=== PATIENT | male | born 1995 | race Caucasian/White ===

== ENCOUNTER 2016-12-12 09:57 | Inpatient (IN) | payer SELFPAY ==
[2016-12-12] VITALS (8 sets, daily range): BP systolic 106–134; BP diastolic 52–73; PULSE 63–75; RESP 15–21; TEMP 97.8–98.7; O2SAT 98–100
[~2016-12-12] VITALS: Ht 185.4 cm; Wt 75.0 kg
[2016-12-12] MEDS ORDERED: POTA10CA PO (11:25)
[2016-12-12] MEDS ORDERED: MAGN250T11 PO (11:25)
--- NOTE | 2016-12-12 11:27 | PD ---
HPI Chief Complaint: General Weakness Time Seen by Provider: 10:59 Travel History International Travel<30 days: No Contact w/Intl Traveler<30days: No Traveled to known affect area: No History of Present Illness HPI This is a 21-year-old male who has a history of hypokalemia who presents to the emergency Department with onset at 3 AM of weakness in his arms and legs. His symptoms are severe, constant, making it difficult for him to move and impossible for him to walk. He says this has happened to him before. He takes potassium 20 mEq daily. He says this runs in his family. PFSH Past Medical History Medical other: Yes (LOW POTASSIUM WITH PARALYSIS) Tetanus Vaccination: Unknown Past Surgical History Surgical History: No Previous Surgery Social History Alcohol Use: No Tobacco Use: No Substance Use: No Allergies-Medications (Allergen,Severity, Reaction): Coded Allergies: No Known Allergies (Unverified , 12/12/16) Reported Meds & Prescriptions Reported Meds & Active Scripts Active Reported Magnesium Oxide 250 Mg Tab 250 Mg PO HS Review of Systems Except as stated in HPI: all other systems reviewed are Neg Physical Exam Narrative GENERAL:Well appearing, no acute distress SKIN: Focused skin assessment warm and dry. HEAD: Atraumatic. Normocephalic. EYES: Pupils equal and round. No injection or drainage. ENT: Moist mucous membranes NECK: Trachea midline. CARDIOVASCULAR: Regular rate and rhythm. No murmur appreciated. RESPIRATORY: Clear to auscultation. Breath sounds equal bilaterally. GASTROINTESTINAL: Abdomen soft, non-tender, nondistended. MUSCULOSKELETAL: No obvious deformities. NEUROLOGICAL: Awake and alert. No obvious cranial nerve deficits. Able to twitch his upper and lower extremities but unable to lift his arms or legs off of the bed. PSYCHIATRIC: Appropriate mood and affect; insight and judgment normal. Data Data Last Documented VS Vital Signs Date Time Temp Pulse Resp B/P (MAP) Pulse Ox O2 Delivery O2 Flow Rate FiO2 12/12/16 11:19 97.8 63 15 127/73 (91) 100 Room Air Orders Orders Complete Blood Count With Diff (12/12/16 11:00) Comprehensive Metabolic Panel (12/12/16 11:00) Magnesium (Mg) (12/12/16 11:00) ^ Insert Iv (12/12/16 11:00) ^ Insert Iv (12/12/16 11:09) Electrocardiogram (12/12/16 ) Potassium Chloride Powder (Kcl Powder) (12/12/16 13:00) Potassium Chlor 20 Meq Premix (Kcl 20 Me (12/12/16 13:00) Admit Order (Ed Use Only) (12/12/16 12:57) Labs Laboratory Tests Test 12/12/16 11:30 White Blood Count 10.9 TH/MM3 Red Blood Count 5.07 MIL/MM3 Hemoglobin 14.4 GM/DL Hematocrit 43.6 % Mean Corpuscular Volume 85.9 FL Mean Corpuscular Hemoglobin 28.3 PG Mean Corpuscular Hemoglobin Concent 32.9 % Red Cell Distribution Width 12.7 % Platelet Count 245 TH/MM3 Mean Platelet Volume 9.2 FL Neutrophils (%) (Auto) 75.5 % Lymphocytes (%) (Auto) 16.2 % Monocytes (%) (Auto) 7.5 % Eosinophils (%) (Auto) 0.6 % Basophils (%) (Auto) 0.2 % Neutrophils # (Auto) 8.2 TH/MM3 Lymphocytes # (Auto) 1.8 TH/MM3 Monocytes # (Auto) 0.8 TH/MM3 Eosinophils # (Auto) 0.1 TH/MM3 Basophils # (Auto) 0.0 TH/MM3 CBC Comment DIFF FINAL Differential Comment Blood Urea Nitrogen 9 MG/DL Creatinine 0.58 MG/DL Random Glucose 107 MG/DL Total Protein 7.9 GM/DL Albumin 4.2 GM/DL Calcium Level 8.9 MG/DL Magnesium Level 2.0 MG/DL Alkaline Phosphatase 69 U/L Aspartate Amino Transf (AST/SGOT) 28 U/L Alanine Aminotransferase (ALT/SGPT) 33 U/L Total Bilirubin 0.3 MG/DL Sodium Level 139 MEQ/L Potassium Level 1.7 MEQ/L Chloride Level 105 MEQ/L Carbon Dioxide Level 26.8 MEQ/L Anion Gap 7 MEQ/L Estimat Glomerular Filtration Rate 177 ML/MIN MDM Medical Decision Making Medical Screen Exam Complete: Yes Emergency Medical Condition: Yes Interpretation(s) Hypokalemia Differential Diagnosis Hypokalemia, hypomagnesemia, rhabdomyolysis, stroke, multiple sclerosis Narrative Course This is a 21-year-old male who presents to the emergency department with a history of hypokalemic familial periodic paralysis unable to move his arms and legs. He was placed on a monitor and an IV was established. His potassium is 1.7. On EKG he had U waves. Patient was admitted to the intensive care unit for close monitoring and potassium repletion was initiated in the emergency department via IV and oral routes. Critical Care Narrative Aggregate critical care time was 35 minutes. Time to perform other separately billable procedures was not included in the critical care time. My time did not include minutes spent treating any other patients simultaneously or on activities that did not directly contribute to the patient's treatment. The services I provided to this patient were to treat and/or prevent clinically significant deterioration that could result in: Disability, I provided critical care services requiring my management, as noted below: Chart data review, documentation time, medication orders and management, vital sign assessments/reviewing monitor data, ordering and reviewing lab tests, ordering and interpreting/reviewing x-rays and diagnostic studies, care of the patient and discussion of the patient with the admitting physicians. Diagnosis Primary Impression: Hypokalemic familial periodic paralysis Admitting Information Admitting Physician Requests: Admit Scripts Potassium Chloride ER (Potassium Chloride ER) 10 Meq Cap 10 MEQ PO BID for Electrolyte Replacement, #60 CAP 0 Refills Prov: Sd Pineda MD 12/13/16 Emily Bunch MD Dec 12, 2016 11:27
[2016-12-12 12:00] LABS: AUTOMATED NEUTROPHIL # 8.2 TH/MM3 (1.8-7.7); BASOPHIL % 0.2 % (0.0-2.0); EOSINOPHIL # 0.1 TH/MM3 (0-0.4); EOSINOPHIL % 0.6 % (0.0-4.0); HEMATOCRIT 43.6 % (39.0-51.0); HEMOGLOBIN 14.4 GM/DL (13.0-17.0); LYMPH % 16.2 % (9.0-44.0); LYMPHOCYTE # 1.8 TH/MM3 (1.0-4.8); MEAN CELL VOLUME 85.9 FL (80.0-100.0); MEAN CORPUSCULAR HEMOGLOBIN 28.3 PG (27.0-34.0); MEAN CORPUSCULAR HGB CONC 32.9 % (32.0-36.0); MEAN PLATELET VOLUME 9.2 FL (7.0-11.0); MONO % 7.5 % (0.0-8.0); MONOCYTE # 0.8 TH/MM3 (0-0.9); NEUT % 75.5 % (16.0-70.0); PLATELET COUNT 245 TH/MM3 (150-450); RED BLOOD COUNT 5.07 MIL/MM3 (4.50-5.90); RED CELL DISTRIBUTION WIDTH 12.7 % (11.6-17.2); WHITE BLOOD COUNT 10.9 TH/MM3 (4.0-11.0)
[2016-12-12 12:30] LABS: ALBUMIN 4.2 GM/DL (3.4-5.0); ALKALINE PHOSPHATASE 69 U/L (45-117); ALT (GPT) 33 U/L (12-78); AST (GOT) 28 U/L (15-37); BICARBONATE 26.8 MEQ/L (21.0-32.0); BLOOD UREA NITROGEN 9 MG/DL (7-18); CALCIUM 8.9 MG/DL (8.5-10.1); CHLORIDE 105 MEQ/L (98-107); CREATININE 0.58 MG/DL (0.60-1.30); GLOMERULAR FILTRATION RATE 177 ML/MIN (>89); GLUCOSE,RANDOM 107 MG/DL (74-106); SODIUM (NA) 139 MEQ/L (136-145); TOTAL BILIRUBIN ADULT 0.3 MG/DL (0.2-1.0); TOTAL PROTEIN 7.9 GM/DL (6.4-8.2)
[2016-12-12] MEDS: POTASSIUM CHLOR 20 MEQ PREMIX 100 ML IV SCH ×2 (13:00→15:41)
[2016-12-12] MEDS ORDERED: POTASSIUM CHLORIDE 20 MEQ PWD PACKET PO ONE (13:00)
[2016-12-12] MEDS ORDERED: MAGNESIUM HYDROXIDE SUSP 30 ML CUP PO PRN (13:15)
[2016-12-12] MEDS ORDERED: LACTULOSE SYRUP 20 GM/30 ML CUP PO PRN (13:15)
[2016-12-12] MEDS ORDERED: MISCELLANEOUS NURSING INFORMATION XX SCH (13:15)
[2016-12-12] MEDS ORDERED: BISACODYL 10 MG SUPP RECTAL PRN (13:15)
[2016-12-12] MEDS ORDERED: RESP: ALBUTEROL 2.5 MG/IPRATROPIUM 0.5 MG NEB (PRN) INH (13:15)
[2016-12-12] MEDS ORDERED: SENNOSIDES 8.6 MG TAB PO PRN (13:15)
[2016-12-12] MEDS ORDERED: CHLORHEXIDINE GLUCONATE 2 % 1 PACK (2 CLOTHS) TOP PRN (13:15)
[2016-12-12] MEDS ORDERED: ENOXAPARIN SODIUM 40 MG/0.4 ML SYRINGE SQ SCH (15:00)
[2016-12-12] MEDS: NS + KCL 20 MEQ INJ 1,000 ML IV SCH (15:36)
[2016-12-12] MEDS ORDERED: POTASSIUM CHLORIDE 25 MEQ EFFERVESCENT TAB PO ONE (16:00)
--- NOTE | 2016-12-12 16:11 | HHI.HP ---
[facility] Service Critical Care Medicine Primary Care Physician No Primary Care Physician Admission Diagnosis familial hypokalemic periodic paralysis Diagnosis: Chief Complaint: Weakness Travel History International Travel<30 Days: No Contact w/Intl Traveler <30 Da: No Traveled to Known Affected Are: No History of Present Illness This is a 21-year-old male with a known history of hypokalemic periodic paralysis who presents emergency department with weakness since 3 AM this morning. He reportedly sees a doctor as an outpatient for this and takes KCl tabs 20 mEq daily. However, despite this, he states he must go to the ER and get admitted to the hospital for paralytic episodes at least 5-6 times a month, or he estimates 50-60 times a year. He states that he is from [place] and typically goes to [facility] or [facility] when this happens. He was visiting his friends in [facility] this week when he had worsening weakness. He does endorse eating [employer] yesterday. He states he does not know what triggers are most common for him. He states he was out "having a good time "last night, did not tell me any additional information about food or drink last night. He denies any recent vigorous exercise. He denies any associated symptoms including fever , chills, nausea, vomiting, diarrhea, abdominal pain, flulike symptoms, muscle aches. In the emergency department he had a serum potassium of 1.7. Critical care medicine is consulted to evaluate and manage his severe hypokalemia and weakness. Review of Systems Constitutional: DENIES: Fatigue, Fever, Weight loss, Chills, Dizziness, Night Sweats Eyes: DENIES: Blurred vision, Double Vision Respiratory: DENIES: Cough, Wheezing, Hemoptysis, Sputum production, Shortness of breath Cardiovascular: DENIES: Chest pain, Palpitations, Syncope, Dyspnea on Exertion , PND, Lower Extremity Edema, Orthopnea Gastrointestinal: DENIES: Black stools, Bloody stools, Constipation, Diarrhea, Nausea, Vomiting Musculoskeletal: DENIES: Back pain, Neck pain Neurologic: COMPLAINS OF: Localized weakness, DENIES: Abnormal gait, Headache Past Family Social History Allergies: Coded Allergies: No Known Allergies (Unverified , 12/12/16) Past Medical History Hypokalemic periodic paralysis Past Surgical History None Reported Medications KCl 20 mEq daily Active Ordered Medications See MAR Family History Father has hypokalemic periodic paralysis Sister has hypokalemic periodic paralysis Paternal grandmother of hypokalemic periodic paralysis Social History Denied alcohol use. Denied tobacco. Denied other drugs. Physical Exam Vital Signs Vital Signs Date Time Temp Pulse Resp B/P (MAP) Pulse Ox O2 Delivery O2 Flow Rate FiO2 12/12/16 15:03 59 17 134/72 (92) 100 12/12/16 11:19 97.8 63 15 127/73 (91) 100 Room Air 12/12/16 11:19 63 15 100 Room Air 12/12/16 10:03 98.7 73 16 131/69 (89) 100 Physical Exam GENERAL: Young male, lying in bed, in clear distress due to his weakness HEENT: Normocephalic. Atraumatic. Pupils equal, round, reactive, conjugate. Mucous membranes are moist NECK: Trachea is midline. There is no JVD. CHEST: Equal chest rise. Not tachypneic. On room air. CARDIOVASCULAR: Normal rate, regular rhythm. Sinus by telemetry ABDOMEN: Soft, nontender, nondistended. No guarding. MUSCULOSKELETAL: Pulses 2+. No peripheral edema. NEUROLOGICAL: RASS 0. CAM -. Muscle strength 1/5 in all 4 extremities in all distributions, essentially almost 0/5 in the proximal muscle groups, although there is at times some visible muscle firing. Sensation grossly intact. Areflexic. Cranial nerves II through XII intact. Laboratory Laboratory Tests Test 12/12/16 11:30 White Blood Count 10.9 Red Blood Count 5.07 Hemoglobin 14.4 Hematocrit 43.6 Mean Corpuscular Volume 85.9 Mean Corpuscular Hemoglobin 28.3 Mean Corpuscular Hemoglobin Concent 32.9 Red Cell Distribution Width 12.7 Platelet Count 245 Mean Platelet Volume 9.2 Neutrophils (%) (Auto) 75.5 Lymphocytes (%) (Auto) 16.2 Monocytes (%) (Auto) 7.5 Eosinophils (%) (Auto) 0.6 Basophils (%) (Auto) 0.2 Neutrophils # (Auto) 8.2 Lymphocytes # (Auto) 1.8 Monocytes # (Auto) 0.8 Eosinophils # (Auto) 0.1 Basophils # (Auto) 0.0 CBC Comment DIFF FINAL Differential Comment Blood Urea Nitrogen 9 Creatinine 0.58 Random Glucose 107 Total Protein 7.9 Albumin 4.2 Calcium Level 8.9 Magnesium Level 2.0 Alkaline Phosphatase 69 Aspartate Amino Transf (AST/SGOT) 28 Alanine Aminotransferase (ALT/SGPT) 33 Total Bilirubin 0.3 Sodium Level 139 Potassium Level 1.7 Chloride Level 105 Carbon Dioxide Level 26.8 Anion Gap 7 Estimat Glomerular Filtration Rate 177 Result Diagram: 12/12/16 1130 12/12/16 1130 Caprini VTE Risk Assessment Caprini VTE Risk Assessment: Mod/High Risk (score >= 2) Caprini Risk Assessment Model Point Value = 1 Point Value = 2 Point Value = 3 Point Value = 5 Age 41-60 Minor surgery BMI > 25 kg/m2 Swollen legs Varicose veins or History of unexplained or recurrent spontaneous Oral contraceptives or hormone replacement Sepsis (< 1 month) Serious lung disease, including pneumonia (< 1 month) Abnormal pulmonary function Acute myocardial infarction Congestive heart failure (< 1 month) History of inflammatory bowel disease Medical patient at bed rest Age 61-74 Arthroscopic surgery Major open surgery (> 45 min) Laparoscopic surgery (> 45 min) Malignancy Confined to bed (> 72 hours) Immobilizing plaster cast Central venous access Age >= 75 History of VTE Family history of VTE Factor V Leiden Prothrombin [id number] Lupus anticoagulant Anticardiolipin antibodies Elevated serum homocysteine Heparin-induced thrombocytopenia Other congenital or acquired thrombophilia Stroke (< 1 month) Elective arthroplasty Hip, pelvis, or leg fracture Acute spinal cord injury (< 1 month) Prophylaxis Regimen Total Risk Factor Score Risk Level Prophylaxis Regimen 0-1 Low Early ambulation 2 Moderate Order ONE of the following: *Sequential Compression Device (SCD) *Heparin 5000 units SQ BID 3-4 Higher Order ONE of the following medications: *Heparin 5000 units SQ TID *Enoxaparin/Lovenox 40 mg SQ daily (WT < 150 kg, CrCl > 30 mL/min) *Enoxaparin/Lovenox 30 mg SQ daily (WT < 150 kg, CrCl > 10-29 mL/min) *Enoxaparin/Lovenox 30 mg SQ BID (WT < 150 kg, CrCl > 30 mL/min) AND/OR *Sequential Compression Device (SCD) 5 or more Highest Order ONE of the following medications: *Heparin 5000 units SQ TID (Preferred with Epidurals) *Enoxaparin/Lovenox 40 mg SQ daily (WT < 150 kg, CrCl > 30 mL/min) *Enoxaparin/Lovenox 30 mg SQ daily (WT < 150 kg, CrCl > 10-29 mL/min) *Enoxaparin/Lovenox 30 mg SQ BID (WT < 150 kg, CrCl > 30 mL/min) AND *Sequential Compression Device (SCD) Assessment and Plan Assessment and Plan Assessment: 21-year-old male with hypokalemic periodic paralysis who presents with life-threatening hypokalemia. I signed the patient in detail that he needed to talk to his outpatient doctor who follows him about getting his condition under better control, as the frequency of paralytic events is willing to chronic and permanent myopathy. For now we will aggressively replace his electrolytes with IV and by mouth potassium with serial potassium checks. Frequent neuro checks. We will advance his diet when he is stronger and when his myopathy improves. Hypokalemic Periodic Paralysis Severe life-threatening hypokalemia - frequent neuro checks - serial K checks - iv and PO aggressive K replacement - advance diet once myopathy resolves. - tele. watch for QRS changes. This patient remains critically ill with one or more organ systems which are or may become a threat to life. I have spent in excess of 47 minutes discontinuously in the care and management of this patient. This time is exclusive of procedures, and includes, but is not limited to, evaluation of the patient, review of the medical record, discussions with family, consultants, nursing staff, or respiratory therapy, and documentation in the medical record. Sd Pineda MD Dec 12, 2016 16:11
[2016-12-12 17:24] LABS: FREE T4 1.09 NG/DL (0.76-1.46)
[2016-12-12 17:59] LABS: MAGNESIUM 1.9 MG/DL (1.5-2.5); PHOSPHORUS 2.4 MG/DL (2.5-4.9)
[2016-12-12] MEDS: DOCUSATE SODIUM 50 MG/SENNA 8.6 MG TAB PO SCH (21:07)
[2016-12-12] MEDS: FAMOTIDINE 20 MG/2 ML VIAL IV PUSH SCH (21:07)
--- NOTE | 2016-12-12 21:42 | MB ---
cc: JOSIANE MAY M.D. DATE OF CONSULTATION: 12/12/2016 REASON FOR CONSULTATION: HISTORY OF PRESENT ILLNESS: A 21-year-old right-handed man who has been totally healthy but over the last seven years he has had symptoms of hypokalemic, periodic paralysis. His sister has it, as does his father. He lives with his brother who does not have it. It usually occurs when he wakes up. He will wake up and be weak. He says it happens about once a week. He lives up in [place]. He usually goes to the hospital for a few hours or sometimes a whole day. It gradually seems to improve. He was on Diamox and spironolactone at one time but was told to stop it, although he said it did help somewhat. He takes potassium and magnesium now. He eats a lot of salty food and had carbs last night with candy, last night being Halloween, of course. SOCIAL HISTORY He is not a smoker or drinker. No drugs. He lives with his brother. FAMILY HISTORY: Negative for cancer, seizure or stroke. REVIEW OF SYSTEMS: He denies any hypertension, diabetes, hypercholesterolemia, VA CABG, cardiac arrhythmia, renal, hepatic, pulmonary disease, lupus, ulcer, cancer, seizure, or stroke. MEDICATIONS 1. He takes potassium 10 mg b.i.d. 2. Magnesium. ALLERGIES: NO KNOWN DRUG ALLERGIES. PHYSICAL EXAMINATION: On exam, sinus rhythm, 70, afebrile, 21, 124/72. There were no carotid bruits. Heart: Regular rhythm, I do not detect a murmur. Pupils were equal. Visual coronado full. Extraocular movements intact without nystagmus. Facial sensation was normal. Tongue was midline. Eye closure is normal, as his buccal muscles. Tongue was midline. He can wiggle his fingers somewhat bilaterally and has a little bit of movement on the wrist and biceps at this time on the right side, a little bit less on the left. He cannot move his legs at all. There is no ankle clonus. Toes are downgoing bilaterally. DTRs are trace but present on the left knee jerk, absent on the right, absent in the upper extremities. Pinprick and vibratory sense are intact throughout. He has normal tone throughout. There is no ankle clonus. Speech is fluent. He is not aphasic. LABORATORY DATA CBC is normal. Basic metabolic profile, potassium was 1.7. It has been repeated, otherwise his BMP was normal. LFTs normal. Albumin normal. Thyroid pending. IMPRESSION Hypokalemic, periodic paralysis. May be being on a low dose Diamox even if he takes 125 milligrams once a day would be better for him as it did seem to help. I am not sure why they stopped it. At this point, will get his potassium up and he should have good recovery. He is not short of breath he tells me. His bulbar muscles are intact, although he cannot really turn his head. His neck is supple. His facial muscles as far as eye closure and buccal muscles are intact. MD OCTAVIANO Moody/YVES /5:08 PM /9:28 PM
[2016-12-13] VITALS (8 sets, daily range): BP systolic 97–98; BP diastolic 49–55; PULSE 60–80; RESP 18–20; TEMP 98–98.5; O2SAT 98–100
[2016-12-13] MEDS: NS + KCL 20 MEQ INJ 1,000 ML IV SCH
[2016-12-13 03:15] LABS: AUTOMATED NEUTROPHIL # 5.5 TH/MM3 (1.8-7.7); BASOPHIL % 0.5 % (0.0-2.0); EOSINOPHIL # 0.2 TH/MM3 (0-0.4); EOSINOPHIL % 1.7 % (0.0-4.0); HEMATOCRIT 40.8 % (39.0-51.0); HEMOGLOBIN 13.4 GM/DL (13.0-17.0); LYMPHOCYTE # 2.9 TH/MM3 (1.0-4.8); MEAN CELL VOLUME 86.1 FL (80.0-100.0); MEAN CORPUSCULAR HEMOGLOBIN 28.3 PG (27.0-34.0); MEAN CORPUSCULAR HGB CONC 32.9 % (32.0-36.0); MONO % 8.2 % (0.0-8.0); MONOCYTE # 0.8 TH/MM3 (0-0.9); NEUT % 58.6 % (16.0-70.0); PLATELET COUNT 228 TH/MM3 (150-450); RED BLOOD COUNT 4.74 MIL/MM3 (4.50-5.90); RED CELL DISTRIBUTION WIDTH 12.7 % (11.6-17.2); WHITE BLOOD COUNT 9.4 TH/MM3 (4.0-11.0)
[2016-12-13 03:22] LABS: ALBUMIN 3.6 GM/DL (3.4-5.0); ALKALINE PHOSPHATASE 68 U/L (45-117); ALT (GPT) 31 U/L (12-78); AST (GOT) 22 U/L (15-37); BICARBONATE 25.1 MEQ/L (21.0-32.0); BLOOD UREA NITROGEN 7 MG/DL (7-18); CALCIUM 8.5 MG/DL (8.5-10.1); CHLORIDE 106 MEQ/L (98-107); GLOMERULAR FILTRATION RATE 210 ML/MIN (>89); GLUCOSE,RANDOM 85 MG/DL (74-106); SODIUM (NA) 138 MEQ/L (136-145); TOTAL BILIRUBIN ADULT 0.5 MG/DL (0.2-1.0); TOTAL PROTEIN 7.1 GM/DL (6.4-8.2)
[2016-12-13] MEDS ORDERED: CHLORHEXIDINE GLUCONATE 2 % 1 PACK (2 CLOTHS) TOP SCH (04:00)
--- NOTE | 2016-12-13 07:52 | HHI.PR ---
Objective Vital Signs Date Time Temp Pulse Resp B/P (MAP) Pulse Ox O2 Delivery O2 Flow Rate FiO2 12/13/16 06:00 60 12/13/16 04:00 98.5 69 20 98/49 (65) 99 12/13/16 04:00 69 12/13/16 02:00 69 12/13/16 00:00 98.3 71 18 98/54 (69) 98 12/13/16 00:00 71 12/12/16 22:00 71 12/12/16 20:00 73 12/12/16 20:00 98.6 73 21 106/52 (70) 99 12/12/16 18:00 75 12/12/16 16:00 98.3 74 17 124/72 (89) 100 12/12/16 16:00 74 12/12/16 15:30 98.1 70 21 124/72 (89) 98 12/12/16 15:03 59 17 134/72 (92) 100 12/12/16 11:19 97.8 63 15 127/73 (91) 100 Room Air 12/12/16 11:19 63 15 100 Room Air 12/12/16 10:03 98.7 73 16 131/69 (89) 100 I/O 12/12/16 12/12/16 12/12/16 12/13/16 12/13/16 12/13/16 07:00 15:00 23:00 07:00 15:00 23:00 Intake Total 100 ml 240 ml Output Total 450 ml Balance -350 ml 240 ml Intake Oral 240 ml IV Total 100 ml Output Urine Total 450 ml Bladder Scan Volume Amount 158 ml Result Diagram: 12/13/16 0236 12/13/16 0236 Objective Remarks awake alert now 5/5 bue and ble has walked to br Assessment and Plan Assessment and Plan imp all better ok dc neurowise William Villagran MD Dec 13, 2016 07:52
[2016-12-13] MEDS ORDERED: SODIUM CHLOR 0.9% 1000 ML INJ 1,000 ML IV SCH (08:00)
[2016-12-13] MEDS: DOCUSATE SODIUM 50 MG/SENNA 8.6 MG TAB PO SCH (09:00)
[2016-12-13] MEDS: FAMOTIDINE 20 MG/2 ML VIAL IV PUSH SCH (09:14)
--- NOTE | 2016-12-13 10:18 | HHI.DS ---
Discharge Summary Admission Date Dec 12, 2016 at 12:59 Discharge Date: Dec 13, 2016 Admitting Diagnosis familial hypokalemic periodic paralysis (1) Hypokalemic familial periodic paralysis ICD Code: G72.3 - Periodic paralysis Diagnosis: Principal Status: Acute Brief History This is a 21-year-old male with a known history of hypokalemic periodic paralysis who presents emergency department with weakness since 3 AM this morning. He reportedly sees a doctor as an outpatient for this and takes KCl tabs 20 mEq daily. However, despite this, he states he must go to the ER and get admitted to the hospital for paralytic episodes at least 5-6 times a month, or he estimates 50-60 times a year. He states that he is from [place] and typically goes to [facility] or [facility] when this happens. He was visiting his friends in [facility] this week when he had worsening weakness. He does endorse eating [employer] yesterday. He states he does not know what triggers are most common for him. He states he was out "having a good time "last night, did not tell me any additional information about food or drink last night. He denies any recent vigorous exercise. He denies any associated symptoms including fever , chills, nausea, vomiting, diarrhea, abdominal pain, flulike symptoms, muscle aches. In the emergency department he had a serum potassium of 1.7. Critical care medicine is consulted to evaluate and manage his severe hypokalemia and weakness. CBC/BMP: 12/13/16 0236 12/13/16 0236 Significant Findings Laboratory Tests Test 12/12/16 11:30 12/12/16 15:15 12/12/16 16:15 12/13/16 00:05 Neutrophils (%) (Auto) 75.5 % (16.0-70.0) Neutrophils # (Auto) 8.2 TH/MM3 (1.8-7.7) Creatinine 0.58 MG/DL (0.60-1.30) Random Glucose 107 MG/DL (74-106) Potassium Level 1.7 MEQ/L (3.5-5.1) 2.3 MEQ/L (3.5-5.1) 6.4 MEQ/L (3.5-5.1) Phosphorus Level 2.4 MG/DL (2.5-4.9) Test 12/13/16 02:36 Monocytes (%) (Auto) 8.2 % (0.0-8.0) Creatinine 0.50 MG/DL (0.60-1.30) Potassium Level 5.8 MEQ/L (3.5-5.1) PE at Discharge gen: awake, alert, no acute distress. heent: perrl. mmm. neck: no jvd. trachea midline. chest: unlabored. equal chest rise. on room air. cv: normal rate, regular rhythm. sinus. abd: soft, nontender, nondistended. extr: no edema. neuro: MARKIE 06/15. no neuro deficits. Hospital Course Patient improved with potassium supplementation. Neurology consult was obtained and recommended discharge on his current potassium supplementation and close follow up with his already established provider to monitor his progress. Patient this morning has good strength back to baseline and no complaints. tolerating diet. voiding. stable for discharge home with follow up with his already established provider. Pt Condition on Discharge: Good Discharge Disposition: Discharge Home Discharge Instructions DIET: Follow Instructions for: As Tolerated, No Restrictions Additional Diet Instructions: low carbohydrate diet per neurology. Activities you can perform: Regular-No Restrictions Sd Pineda MD Dec 13, 2016 10:18
[2016-12-13] MEDS ORDERED: POTA10CA PO (10:20)
--- NOTE | 2016-12-13 14:48 | EKG ---
Date Performed: 12/12/2016 Time Performed: 11:42:14 PTAGE: 21 years EKG: SINUS BRADYCARDIA NONSPECIFIC ST & T-WAVE ABNORMALITY ABNORMAL ECG Clinical correlation is recommended NO PREVIOUS TRACING DOCTOR: Jesus Juarez Interpretating Date/Time 12/13/2016 14:47:24
== END 2016-12-13 11:25 | disposition home or self-care (01) | DRG 93 ==
LOC: NEPD 09:57 → NEDA 12:59 → HIMN 15:00
PROVIDERS: ADMIT Internal Medicine; ATTEND Internal Medicine
DX: G72.3 Periodic paralysis (principal)
CPT/HCPCS: 80053; 83735; 84100; 84132; 84439; 84443; 84481; 85025; 87641; 93005; 99291; J1650; J3480; J7030